=== PATIENT | male | born 1945 | race Caucasian/White ===

== ENCOUNTER 2017-01-11 14:00 | Emergency (ER) | payer OTHER ==
[2017-01-11] MEDS ORDERED: ceFAZolin 2 GM in Premix Bag 1 BAG IV ONE (14:48)
--- NOTE | 2017-01-11 14:48 | EDM.PDOC ---
ED HPI GENERAL MEDICAL PROBLEM - General Chief Complaint: Upper Extremity Injury/Pain Stated Complaint: CUT END OF FINGER OFF Time Seen by Provider: 01/11/17 14:48 Source of Information: Reports: Patient History Limitations: Reports: No Limitations - History of Present Illness INITIAL COMMENTS - FREE TEXT/NARRATIVE: HISTORY AND PHYSICAL: History of present illness: [71-year-old male complaining of left index finger injury just prior to arrival. He is left-hand dominant. Patient lifted a heavy metal object with his right hand at slipped out of his hand and injured his left index finger at the DIP distribution. Patient has a significant laceration on the dorsum and his fingers flexed at 90 at the DIP. He is unable to straighten up but he states he does have some sensation on the finger pad. His tetanus is up-to-date within the last 3 years. He has no allergies to antibiotics. Patient has no bone or bleeding problems. He states he irrigated the wound extensively at home. Review of systems: As per history of present illness and below otherwise all systems reviewed and negative. Past medical history: As per history of present illness and as reviewed below otherwise noncontributory. Surgical history: As per history of present illness and as reviewed below otherwise noncontributory. Social history: No reported history of drug or alcohol abuse. Family history: As per history of present illness and as reviewed below otherwise noncontributory. Physical exam: Left index finger with near amputation at the level of the DIP. Laceration is dorsal with a skin hinge the palmar aspect intact. Patient states he does have some sensation of the finger pad. It is flexed at 90 at the skin hinge and is unable to straighten it. Proximal finger is unremarkable as well as remainder hand wrist and extremity HEENT: Atraumatic, normocephalic, pupils reactive, negative for conjunctival pallor or scleral icterus, mucous membranes moist, throat clear, neck supple, nontender, trachea midline. Lungs: Clear to auscultation, breath sounds equal bilaterally, chest nontender. Heart: S1S2, regular, negative for clicks, rubs, or JVD. Abdomen: Soft, nondistended, nontender. Negative for masses or hepatosplenomegaly. Negative for costovertebral tenderness. Pelvis: Stable nontender. Genitourinary: Deferred. Rectal: Deferred. Extremities: Atraumatic, negative for cords or calf pain. Neurovascular unremarkable. Neuro: Awake, alert, oriented. Cranial nerves II through XII unremarkable. Cerebellum unremarkable. Motor and sensory unremarkable throughout. Exam nonfocal. Diagnostics: [X-ray left index finger with transverse fracture at the base of the left hand second finger distal phalange. There also appears to be a comminuted element with a nondisplaced fracture with suspected intra-articular extension through the proximal fragment into the joint. Fracture fragment distal phalange flexed at 70 approximately. 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 Patient states he has some sensation of the finger pad as well. Patient has no ability to extend the distal fingertip and it appears that the transverse fracture through the distal phalange is distal to the attachment point for the extensor and flexor tendons. Analgesia and antibiotics given. Tetanus is up-to- date. Discussed with orthopedics laborer construction or leak gang Dr. Samy guerra . Is aware of history and findings and states this is beyond the scope of his practice and recommends transfer to a facility with hand surgery available. Closest most appropriate facility is [facility], however patient is refusing to go there and states he [facility] to [facility] he has lived and previously been treated and had experience with the hospital there. Patient is refusing transfer elsewhere and states will drive his own vehicle. Case discussed with surgery attending laborer construction or leak gang is aware the history and findings accept patient in transfer. Case also discussed with the emergency medicine physician who accepts patient is well and is aware of the details of the case. Official transfer completed and patient refuses our transportable go POV. He is aware of critical importance of compliance with the transfer for definitive care without which she may have a permanent disability chronic pain, or potentially life- threatening complication Definitive disposition and diagnosis as appropriate pending reevaluation and review of above. Left 2-Index finger Pain Score (Numeric/FACES): 2 - Related Data Allergies Allergy/AdvReac Type Severity Reaction Status Date / Time No Known Allergies Allergy Verified 01/11/17 14:54 Home Meds: Home Meds . [Unable to Verify Home Med List] 01/11/17 [History] Review of Systems - Review of Systems Review Of Systems: See Below (History of present illness) ED EXAM, GENERAL - Physical Exam Exam: See Below (History of present illness) Course - Vital Signs Last Recorded V/S: Last Vital Signs Temp 36.7 C 01/11/17 16:11 Pulse 54 L 01/11/17 16:11 Resp 20 01/11/17 16:11 BP 164/83 H 01/11/17 16:11 Pulse Ox 99 01/11/17 16:11 - Orders/Labs/Meds Meds: Medications Discontinued Medications Generic Name Dose Route Start Last Admin Trade Name Freq PRN Reason Stop Dose Admin Cefazolin Sodium/Dextrose 2 gm 50 mls @ 100 mls/hr 01/11/17 14:48 01/11/17 15 :02 / Premix IV 01/11/17 15:17 100 mls/hr ONETIME ONE Administration Ketorolac Tromethamine 30 mg 01/11/17 14:51 01/11/17 15:02 Toradol IVPUSH 01/11/17 14:52 30 mg ONETIME ONE Administration Departure - Departure Time of Disposition: 16:10 Disposition: DC/Tfer to Acute Hospital 02 Condition: Fair Clinical Impression: Open fracture of phalanx of left index finger - Discharge Information Referrals: PCP,None [Primary Care Provider] -
[2017-01-11] MEDS ORDERED: Ketorolac 30 MG/ML SDV IVPUSH ONE (14:51)
[2017-01-11 16:23] VITALS: BP 164/83
--- NOTE | 2017-01-11 19:46 | CR ---
EXAM DATE: 01/11/17 PATIENT'S AGE: 71 Patient: AMNA HAMILTON Facility: [place], [place] Site . Site : [id number] Study: XRay Extremity Left Finger [id number]/28/2017 3:28:47 PM Ordering Physician: Peter Alonzo Final Report: INDICATION: Injury to left 2nd digit. Dropped pipe on finger. TECHNIQUE: Finger radiographs 3 views COMPARISON: None FINDINGS: Displaced left 2nd distal phalanx fracture. Fracture does not appear to involve the left 2nd DIP joint. Soft tissue swelling with overlying bandage material. No radiopaque soft tissue foreign body. IMPRESSION: 1. Displaced left 2nd distal phalanx fracture without intra-articular involvement. Dictated by Patrick aRshid MD @ 01/11/2017 3:57:34 PM Dictated by: Patrick Rashid MD @ 01/11/2017 15:57:43 (Electronic Signature) Report Signed by Proxy. GINGER
== END 2017-01-11 16:11 ==
LOC: MW.ED 14:00
DX: S62.631B Displaced fracture of distal phalanx of left index finger, initial encounter for open fracture (principal); X50.0XXA Overexertion from strenuous movement or load, initial encounter; Y99.0 Civilian activity done for income or pay
CPT/HCPCS: 73140; 96365; 96375; 99284; J0690; J1885